=== PATIENT | female | born 1985 ===

== ENCOUNTER 2021-06-18 01:38 | Emergency (ER) | payer SELFPAY | END 2021-06-18 03:00 | LOC: ED 01:38 | DX: R10.9 Unspecified abdominal pain (principal); Z53.21 Procedure and treatment not carried out due to patient leaving prior to being seen by health care provider ==

== ENCOUNTER 2021-06-25 01:57 | Emergency (ER) | payer SELFPAY ==
[2021-06-25 02:12] VITALS: BP 129/91
[2021-06-25] MEDS ORDERED: ONDANSETRON 4 MG/2 ML INJ IV ONE (02:40)
[2021-06-25] MEDS ORDERED: fentaNYL 100 MCG/2 ML INJ IV ONE (02:40)
--- NOTE | 2021-06-25 02:45 | Emergency Department Report ---
HPI - General Chief Complaint: Abdominal Pain Time Seen by Provider: 06/25/21 02:29 - HPI HPI: MSE 6 The patient is a 35-year-old female present with a chief complaint of abdominal pain. The patient states approximate 2 months ago she was diagnosed with a UTI at an outside hospital emergency department. Patient states she was given a prescription for an antibiotic in the penicillin family and took for 5 days before she found out it was resistant. Patient was switched over to Bactrim and states she completed a 10-day course however her symptoms have never really resolved. The patient symptoms include suprapubic spasms with intermittent right flank shooting pain as well as dysuria. Patient denies vaginal discharge or hematuria. Patient denies history of fever nausea vomiting or diarrhea. Patient states her LMP was 05/29/2021 and was within normal limits ED Past Medical Hx - Past Medical History Previous Medical History?: Yes Hx Psychiatric Treatment: Yes (PTSD, ANXIETY) Additional medical history: OVARIAN CYST. FIBROMYALGIA - Surgical History Past Surgical History?: Yes Additional Surgical History: C-SECTIONS X4 - Family History Family history: no significant - Social History Smoking Status: Former Smoker (None x10 years) Substance Use Type: None (Denies illicit drug use) ED Review of Systems ROS: Stated complaint: ABDOMINAL PAIN Other details as noted in HPI Constitutional: denies: fever Eyes: denies: eye pain ENT: denies: throat pain Respiratory: no symptoms reported Endocrine: denies: no symptoms reported Gastrointestinal: abdominal pain. denies: nausea, vomiting, diarrhea Genitourinary: dysuria, frequency. denies: hematuria, discharge, abnormal menses Musculoskeletal: denies: back pain Neurological: denies: headache Physical Exam - Physical Exam Vital Signs: Vital Signs 06/25/21 02:02 Temperature 98.0 F Pulse Rate 96 H Respiratory 18 Rate Blood Pressure 129/91 O2 Sat by Pulse 96 Oximetry Physical Exam: GENERAL: The patient is well-developed well-nourished female lying on stretcher not appearing to be in acute distress. [] HEENT: Normocephalic. Atraumatic. Extraocular motions are intact. Patient has moist mucous membranes. NECK: Supple. Trachea CHEST/LUNGS: Clear to auscultation. There is no respiratory distress noted. HEART/CARDIOVASCULAR: Regular. There is no tachycardia. There is no gallop rub or murmur. ABDOMEN: Abdomen is soft, with mild diffuse discomfort to palpation but moderate discomfort to palpation in the suprapubic region. There is no rebound or guarding. Patient has normal bowel sounds. There is no abdominal distention. SKIN: There is no rash. There is no edema. There is no diaphoresis. NEURO: The patient is awake, alert, and oriented. The patient is cooperative. The patient has no focal neurologic deficits. The patient has normal speech and gait. GCS 15 MUSCULOSKELETAL: There is CVA tenderness bilateral. There is no evidence of acute injury. ED Course Vital Signs 06/25/21 02:02 Temperature 98.0 F Pulse Rate 96 H Respiratory 18 Rate Blood Pressure 129/91 O2 Sat by Pulse 96 Oximetry ED Medical Decision Making - Differential Diagnosis UTI, renal abscess, bladder abscess Critical care attestation.: If time is entered above; I have spent that time in minutes in the direct care of this critically ill patient, excluding procedure time. ED Disposition Clinical Impression: Abdominal pain Disposition: 07 LEFT AWOL/ELOPED Is pt being admited?: No Does the pt Need Aspirin: No Condition: Undetermined Instructions: Abdominal Pain (ED) Time of Disposition: 04:46 (Informed by nursing patient eloped)
[2021-06-25 03:07] LABS: Bilirubin,Urine NEG (Negative); Blood,Urine NEG (Negative); Color,Urine Amber (Yellow); Protein,Urine <15 mg/dL mg/dL (Negative)
== END 2021-06-25 05:56 | disposition left against medical advice (07) ==
LOC: ED 01:57
DX: R10.84 Generalized abdominal pain (principal); M79.7 Fibromyalgia; Z98.890 Other specified postprocedural states
CPT/HCPCS: 81001; 99283